=== PATIENT | female | born 1985 | race American Indian/Alaskan Native ===

== ENCOUNTER 2016-04-25 05:27 | Emergency (ER) | payer SELFPAY ==
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
[2016-04-25] MEDS ORDERED: ATIVAN PO ONE (06:51)
[2016-04-25] MEDS ORDERED: BENADRYL IM PRN (06:52)
[2016-04-25] MEDS ORDERED: HALDOL IM PRN (06:52)
[2016-04-25] MEDS ORDERED: ATIVAN IM PRN (06:52)
[2016-04-25 06:53] LABS: Basophils % (Auto) 0.5 % (0.0-1.8); Hematocrit 38.7 % (30.3-42.9); Hemoglobin 12.8 gm/dl (10.1-14.3); Mean Corpuscular HGB Conc 33 % (30-34); Mean Corpuscular Hemoglobin 30 pg (28-32); Mean Corpuscular Volume 90 fl (79-97); Platelet Count 257 K/mm3 (140-440); Red Blood Count 4.29 M/mm3 (3.65-5.03); Red Cell Distribution Width 13.8 % (13.2-15.2); White Blood Count 6.1 K/mm3 (4.5-11.0)
[2016-04-25 06:54] LABS: Blood Urea Nitrogen 16 mg/dL (7-17); Calcium 9.5 mg/dL (8.4-10.2); Carbon Dioxide 22 mmol/L (22-30); Chloride 98.7 mmol/L (98-107); Glucose 111 mg/dL (65-100); Potassium 4.1 mmol/L (3.6-5.0); Sodium 138 mmol/L (137-145)
[2016-04-25 06:56] LABS: Bilirubin,Urine NEG (Negative); Blood,Urine SM (Negative); Ketones,Urine 80 mg/dL (Negative); Leukocyte Esterase,Urine NEG (Negative); Mucus,Urine 3+ /HPF; Nitrite,Urine NEG (Negative); Protein,Urine <15 mg/dL mg/dL (Negative); Urobilinogen,Urine < 2.0 mg/dL (<2.0)
[2016-04-25 06:56] LABS: Anion Gap 21 mmol/L
[2016-04-25 11:10] LABS: Urine Drugs of Abuse Note Disclamer
--- NOTE | 2016-04-26 07:35 | Emergency Department Report ---
Blank Doc - Documentation Documentation: Vital Signs - 24 hr 04/25/16 04/25/16 04/25/16 07:35 08:46 20:00 Temperature 98.0 F 98.6 F Pulse Rate 80 96 H Respiratory 14 14 16 Rate Blood Pressure 132/74 107/67 [Left] O2 Sat by Pulse 98 99 98 Oximetry Vital signs reviewed. No events reported. Awaiting placement
[2016-04-26] MEDS ORDERED: NACL 0.9% 1000 ML 1,000 ML ONE (22:00)
[2016-04-28] MEDS ORDERED: NACL 0.9% 1000 ML 2,000 ML ONE (02:30)
[2016-04-28] MEDS ORDERED: ZOFRAN ONE (02:34)
[2016-04-28] MEDS ORDERED: MORPHINE ONE (02:34)
[2016-05-03 15:07] VITALS: BP 119/65
== END 2016-05-03 15:22 ==
LOC: EEVIPCON 05:27 → ED 05:27
DX: F29 Unspecified psychosis not due to a substance or known physiological condition (principal); F41.9 Anxiety disorder, unspecified
CPT/HCPCS: 36415; 80048; 80307; 81001; 84439; 84443; 84703; 85025; 96372; 99285; G0480; J1200; J2060; J7030; 80320; J1630; J2270; J2405

== ENCOUNTER 2017-09-05 14:07 | Emergency (ER) | payer SELFPAY ==
[2017-09-05 15:11] LABS: Basophils % (Auto) 0.2 % (0.0-1.8); Hematocrit 37.9 % (30.3-42.9); Hemoglobin 13.2 gm/dl (10.1-14.3); Lymphocytes # (Auto) 1.7 K/mm3 (1.2-5.4); Mean Corpuscular HGB Conc 35 % (30-34); Mean Corpuscular Hemoglobin 31 pg (28-32); Mean Corpuscular Volume 90 fl (79-97); Monocytes # (Auto) 0.3 K/mm3 (0.0-0.8); Monocytes % (Auto) 4.9 % (0.0-7.3); Platelet Count 239 K/mm3 (140-440); Red Blood Count 4.23 M/mm3 (3.65-5.03); Red Cell Distribution Width 14.3 % (13.2-15.2)
[2017-09-05 15:43] LABS: BUN/Creatinine Ratio 24; Blood Urea Nitrogen 17 mg/dL (7-17); Calcium 9.4 mg/dL (8.4-10.2); Hemolysis Index 6
--- NOTE | 2017-09-05 17:46 | Emergency Department Report ---
ED Psych HPI - General Chief Complaint: Psych Stated Complaint: PSYCH EVAL Source: patient Mode of arrival: Ambulatory - History of Present Illness Initial Comments: This is a 32-year-old female who states that she was dropped off here by family members. The history is possibly not reliable. The patient does admit that she has been walking around [place]. She states that her intention was to get to a friend's house in order to get to a letter to look for a job. She was walking in high heels. She came to the emergency department and requested to go to medical records to get her previous records. She left under the circumstances. I requested a security bring her back here because she has a history of involuntary confinement for psychosis. That was her only previous record. The patient obliged and came back to the treatment area of her own free will. She was given a gown. I was able to then speak to her. She tells me that she is not homeless but was living with 2 family members. Exactly why she was walking around and wanted to get a job in [place] doesn't make particular since. She states that she was needing to do 10 errands but new she could only do about 3. In any case she is coherent and lucid when I speak to her. She is not expressing any violent or suicidal ideation. She is not agitated. She states that she would like to speak to a social media community manager and doesn't mind speaking to the mental health counselor. She was seen by Taylor, the mental health counselor. She told me that the patient does not have 1013 criteria. As per my assessment, I must concur with this. However her behavior was a bit irrational. She was previously sent to [facility] she tells me and then ultimately transferred to [place]. She was properly placed on psychiatric medications but doesn't admit this. In any case it does appear that she is able to perform the activities of daily living. She was not responding to internal stimuli. She was not paranoid. She did not have the typical 1013 criteria such as suicidal ideation or thoughts of violence. Thus, at this point she is not a "1013". She does state she would like to stay to get social media director. Thus far she has been cooperative. Complaint: other -: unknown Associated Psychiatric Symptoms: other History of same: Yes Context: not taking psychiatric Associated Symptoms: denies other symptoms (except has blisters on her feet) Treatments Prior to Arrival: none - Related Data Home Medications Medication Instructions Recorded Confirmed Last Taken No Known Home Medications [No 04/25/16 04/25/16 Unknown Reported Home Medications] Allergies Allergy/AdvReac Type Severity Reaction Status Date / Time Sulfa (Sulfonamide Allergy Hives Verified 04/25/16 05:37 Antibiotics) ED Review of Systems ROS: Stated complaint: PSYCH EVAL Other details as noted in HPI Constitutional: denies: chills, fever Eyes: denies: eye pain, eye discharge, vision change ENT: denies: ear pain, throat pain Respiratory: denies: cough, shortness of breath, wheezing Cardiovascular: denies: chest pain, palpitations Endocrine: no symptoms reported Gastrointestinal: denies: abdominal pain, nausea, diarrhea Genitourinary: denies: urgency, dysuria, discharge Musculoskeletal: denies: back pain, joint swelling, arthralgia Skin: as per HPI. denies: rash, lesions Neurological: denies: headache, weakness, paresthesias Psychiatric: denies: anxiety, depression Hematological/Lymphatic: denies: easy bleeding, easy bruising ED Past Medical Hx - Past Medical History Previous Medical History?: Yes Hx Psychiatric Treatment: Yes (paranoid deluisonal thoughts) Additional medical history: Patient denies medical or psychiatric history - Surgical History Past Surgical History?: Yes Hx Breast Surgery: Yes - Social History Smoking Status: Never Smoker Substance Use Type: None - Medications Home Medications: Home Medications Medication Instructions Recorded Confirmed Last Taken Type No Known Home Medications [No 04/25/16 04/25/16 Unknown History Reported Home Medications] ED Physical Exam - General Limitations: No Limitations General appearance: alert, in no apparent distress - Head Head exam: Present: atraumatic, normocephalic - Eye Eye exam: Present: normal appearance, PERRL, EOMI. Absent: scleral icterus - ENT ENT exam: Present: mucous membranes moist - Neck Neck exam: Present: normal inspection. Absent: tenderness, meningismus - Respiratory Respiratory exam: Present: normal lung sounds bilaterally. Absent: respiratory distress - Cardiovascular Cardiovascular Exam: Present: regular rate, normal rhythm. Absent: systolic murmur, diastolic murmur, rubs, gallop - GI/Abdominal GI/Abdominal exam: Present: soft, normal bowel sounds. Absent: distended, tenderness, guarding, rebound, rigid - Extremities Exam Extremities exam: Present: normal inspection (except for plantar aspect of both feet) - Back Exam Back exam: Present: normal inspection - Neurological Exam Neurological exam: Present: alert, oriented X3, CN II-XII intact. Absent: motor sensory deficit - Psychiatric Psychiatric exam: Present: normal affect, normal mood - Skin Skin exam: Present: warm, dry, normal color, other (patient had some epidermal avulsions of the distal metatarsal area of both feet. There was no signs of infection.). Absent: rash ED Course Vital Signs 09/05/17 14:16 Temperature 98.4 F Pulse Rate 113 H Respiratory 20 Rate Blood Pressure 114/70 O2 Sat by Pulse 98 Oximetry - Reevaluation(s) Reevaluation #1: Patient does not have 1013 criteria at this point. She cannot be held against her will. I have put a case management consult in. She will be observed overnight if she desires waiting on case management in the morning. 09/05/17 19:29 ED Medical Decision Making - Lab Data Result diagrams: 09/05/17 14:44 09/05/17 14:44 Laboratory Results - last 24 hr 09/05/17 09/05/17 09/05/17 14:44 14:44 14:44 WBC RBC Hgb Hct MCV MCH MCHC RDW Plt Count Lymph % (Auto) [place] % (Auto) Eos % (Auto) Baso % (Auto) Lymph # [place] # Eos # Baso # Seg Neutrophils % Seg Neutrophils # Sodium 140 Potassium 3.7 Chloride 104.8 Carbon Dioxide 19 L Anion Gap 20 BUN 17 Creatinine 0.7 Estimated GFR > 60 BUN/Creatinine Ratio 24 Glucose 75 Calcium 9.4 Salicylates < 0.3 L Acetaminophen < 5.0 L Plasma/Serum Alcohol 09/05/17 09/05/17 14:44 14:44 WBC 6.9 RBC 4.23 Hgb 13.2 Hct 37.9 MCV 90 MCH 31 MCHC 35 H RDW 14.3 Plt Count 239 Lymph % (Auto) 25.0 [place] % (Auto) 4.9 Eos % (Auto) 0.0 Baso % (Auto) 0.2 Lymph # 1.7 [place] # 0.3 Eos # 0.0 Baso # 0.0 Seg Neutrophils % 69.9 Seg Neutrophils # 4.8 Sodium Potassium Chloride Carbon Dioxide Anion Gap BUN Creatinine Estimated GFR BUN/Creatinine Ratio Glucose Calcium Salicylates Acetaminophen Plasma/Serum Alcohol < 0.01 Critical care attestation.: If time is entered above; I have spent that time in minutes in the direct care of this critically ill patient, excluding procedure time. ED Disposition Clinical Impression: Psychiatric disorder, Case management patient Avulsion of skin of foot Qualifiers: Encounter type: initial encounter Laterality: unspecified laterality Qualified Code(s): S91.309A - Unspecified open wound, unspecified foot, initial encounter Disposition: TO HOME OR SELFCARE Is pt being admited?: No Does the pt Need Aspirin: No Condition: Stable Instructions: Medical Clearance for Psychiatric Care (ED), Skin Avulsion (ED) Additional Instructions: Case management. I recommend further evaluation at [facility]. Referrals: PRIMARY CAREMD [Primary Care Provider] - 3-5 Days Time of Disposition: 19:32
[2017-09-05] MEDS ORDERED: ATIVAN ONE (19:09)
[2017-09-05] MEDS ORDERED: ALUM-MAG HYDROX-SIMETH 200-200-20MG/5ML PO PRN (19:33)
[2017-09-05] MEDS ORDERED: TYLENOL PO PRN (19:33)
[2017-09-05] MEDS ORDERED: MILK OF MAGNESIA PO PRN (19:33)
[2017-09-06] MEDS ORDERED: DUONEB *Not for PRN Use IH ONE ×2 (11:58→12:12)
[2017-09-06 15:02] VITALS: BP 109/53
== END 2017-09-06 18:45 | disposition home or self-care (01) ==
LOC: ED 14:07
DX: F29 Unspecified psychosis not due to a substance or known physiological condition (principal); S91.309A Unspecified open wound, unspecified foot, initial encounter; Z79.899 Other long term (current) drug therapy; Z88.1 Allergy status to other antibiotic agents; Y93.01 Activity, walking, marching and hiking; X58.XXXA Exposure to other specified factors, initial encounter; Y99.8 Other external cause status; Y92.89 Other specified places as the place of occurrence of the external cause
CPT/HCPCS: 36415; 80048; 85025; 99284; G0480; 80320; J2060